=== PATIENT | male | born 1950 | race Caucasian/White ===

== ENCOUNTER 2016-10-29 08:34 | Day surgery (SDC) | payer MEDICARE, BC ==
--- NOTE | 2016-10-29 09:25 | PCM.PN ---
- General Info Date of Service: 10/29/16 - Review of Systems Systems Review Comment:: 66 y/o male with history of persistent RUQ pain and upper abdominal bloating. He has areas of thickening of the gallbladder wall on US and symptoms have now continued over several days. Plan cholecystectomy. Patient is stable to proceed with no significant changes to his health status since his recent exams. I have again discussed the proposed procedure with the patient. He agrees to proceed accepting risks. - Patient Data Weight - Most Recent: 174 lb Med Orders - Current: Current Medications Lactated Ringer's (Ringers, Lactated) 1,000 mls @ 125 mls/hr IV ASDIRECTED JAMES Cefazolin Sodium 1 gm/ Sodium (Chloride) 50 mls @ 200 mls/hr IV ONETIME ONE Stop: 10/29/16 10:14 - Problem List Review Problem List Initiated/Reviewed/Updated: Yes - My Orders Last 24 Hours: My Active Orders 10/28/16 13:37 Resuscitation Status Routine 10/29/16 08:30 Patient Status [ADT] Routine Patient to Empty Bladder [RC] ASDIRECTED Verify Patient Consent Obtain [RC] ASDIRECTED Lactated Ringers [Ringers, Lactated] 1,000 ml IV ASDIRECTED Peripheral IV Insertion Adult [OM.PC] Routine Sequential Compression Device [OM.PC] Routine 10/29/16 10:00 ceFAZolin [Ancef] 1 gm Sodium Chloride 0.9% [Normal Saline] 50 ml IV ONETIME 10/29/16 Breakfast Nothing Per Oral Diet [DIET] - Assessment Assessment:: Cholecystitis - Plan Plan:: Cholecystectomy
[2016-10-29] MEDS: Lactated Ringers 1,000 ML IV SCH ×2 (09:51→14:37)
[2016-10-29] MEDS ORDERED: Glycopyrrolate 0.2 MG/ML 5 ML MDV IV ONE (10:00)
[2016-10-29] MEDS ORDERED: Propofol 200 MG/20 ML SDV IV ONE (10:00)
[2016-10-29] MEDS ORDERED: ceFAZolin 1 GM in Sodium Chloride 0.9% 50 ML IV ONE (10:00)
[2016-10-29] MEDS ORDERED: Midazolam 1 MG/ML 2 ML SDV IV ONE (10:00)
[2016-10-29] MEDS ORDERED: HYDROmorphone 2 MG/ML SDV IV ONE (10:00)
[2016-10-29] MEDS ORDERED: Ketorolac 30 MG/ML SDV IVPUSH ONE (10:00)
[2016-10-29] MEDS ORDERED: Neostigmine Methylsulfate 1 MG/ML 5 ML Syringe IV ONE (10:00)
[2016-10-29] MEDS ORDERED: Rocuronium 50 MG/5 ML Vial IV ONE (10:00)
[2016-10-29] MEDS ORDERED: Lactated Ringers 1,000 ML IV ONE (10:00)
[2016-10-29] MEDS ORDERED: Succinylcholine 200 MG/10 ML MDV IV ONE (10:00)
[2016-10-29] MEDS ORDERED: Ondansetron 4 MG/2 ML SDV IVPUSH ONE (10:00)
[2016-10-29] MEDS ORDERED: fentaNYL 100 MCG/2 ML SDV IV ONE (10:00)
[2016-10-29] MEDS ORDERED: Bupivacaine 0.5%/EPINEPHrine 1:200,000 50 ML MDV INJECT ONE (10:24)
--- NOTE | 2016-10-29 11:52 | PCM.OPNOTE ---
- General Post-Op/Procedure Note Date of Surgery/Procedure: 10/29/16 Operative Procedure(s): Laparoscopic Cholecystectomy Findings: Acutely inflamed gallbladder with normal appearing liver and organs as viewed laparoscopically Pre Op Diagnosis: Symptomatic Cholecystitis Post-Op Diagnosis: Same Anesthesia Technique: General ET Tube Primary Surgeon: Kayden Rossi Pathology: Gallbladder Output, Urine Amount: 0 EBL in mLs: 25 Complications: None Condition: Good
[2016-10-29] MEDS ORDERED: Ondansetron 4 MG/2 ML SDV IVPUSH PRN (11:55)
[2016-10-29] MEDS ORDERED: HYDROmorphone 2 MG/ML SDV IV PRN (11:55)
[2016-10-29] MEDS ORDERED: HYDROmorphone 2 MG/ML SDV IVPUSH PRN (11:55)
[2016-10-29] MEDS ORDERED: Albuterol 0.083% 2.5 MG/3 ML Neb Soln NEB ONE (11:55)
[2016-10-29] MEDS ORDERED: fentaNYL 100 MCG/2 ML SDV IVPUSH PRN (11:55)
[2016-10-29] MEDS ORDERED: Naloxone 0.4 MG/ML SDV IVPUSH PRN (11:55)
[2016-10-29] MEDS ORDERED: Promethazine 25 MG/ML SDV IM PRN (11:55)
[2016-10-29] MEDS ORDERED: Lactated Ringers 1,000 ML IV SCH (12:00)
--- NOTE | 2016-10-29 12:57 | OR ---
DATE OF OPERATION: 10/29/2016 SURGEON: Kayden Rossi MD PREOPERATIVE DIAGNOSIS: Symptomatic cholecystitis. POSTOPERATIVE DIAGNOSIS: Symptomatic cholecystitis. OPERATION PERFORMED: Laparoscopic cholecystectomy. INDICATIONS FOR SURGERY: This 66-year-old male has developed symptoms of upper abdominal bloating as well as right upper quadrant abdominal pain. Symptoms have persisted over several days. Ultrasound has identified areas of the gallbladder wall, which appear thickened consistent with inflammation. Without rapid resolution of his symptoms, he comes for cholecystectomy. FINDINGS: The gallbladder does show evidence of chronic and acute inflammation. There were adhesions to the lower half of the gallbladder and there is edema and evidence of acute inflammation in the tissue adjacent to the gallbladder. The adjacent liver appears normal as does the bowel and other organs as viewed laparoscopically. PROCEDURE IN DETAIL: The patient was taken to the operating room. He was given general endotracheal anesthesia. The abdomen was sterilely prepped and draped. An infraumbilical stab wound incision was made. Through this, a Veress needle was inserted and pneumoperitoneum via this needle to a pressure of 15 mmHg was achieved with carbon dioxide. The Veress needle was then replaced with a 12 mm trocar into which the 5 mm variable angled laparoscopic camera was inserted. Under direct visualization, 5 mm trocars were placed in the subxiphoid midline and in 2 areas of the right abdomen. All trocar sites were infiltrated with Marcaine prior to incision. Intraabdominal inspection was carried out and attention was then turned to the gallbladder. It was secured with grasping forceps, placed through the lateral trocars and retracted superiorly and anteriorly. Fatty adhesions to the undersurface of the gallbladder were carefully taken down until the gallbladder wall was clearly exposed. Careful dissection was carried out to isolate the cystic duct and then the cystic artery, which appeared to have two major branches. As dissection continued, cystic artery branches were able to be identified and each in turn controlled by doubly clipping them and dividing the artery adjacent to the gallbladder. Once dissection had cleared the triangle of Calot and allowed clear and positive identity of the cystic duct, it was milked and it too was doubly clipped and divided near the gallbladder with great care being used to avoid any possible injury or compromise to the common bile duct. The gallbladder was then dissected free from the undersurface of the liver using the hook cautery device. Once the gallbladder was completely freed, it was extracted through the umbilical trocar site. This did require some persistent manipulation, but it was eventually able to be performed. The gallbladder bed was then reinspected and copiously irrigated. Full hemostasis was assured with the use of electrocautery and when there was no sign of any bleeding or any other complicating process, and after thorough irrigation had been carried out, the pneumoperitoneum was evacuated and the trocars were removed under direct visualization. The fascia of the umbilical trocar site was closed with a figure- of-eight 0 Vicryl suture. Wounds were irrigated with Betadine and saline solution. Skin incisions were approximated with interrupted 4-0 Vicryl in a subcuticular stitch, Steri-Strips and Benzoin. Antibiotic ointment and sterile dressings were placed. The patient was awakened extubated and taken from the operating room in satisfactory condition. ESTIMATED BLOOD LOSS: 25 mL. COMPLICATIONS: None. PROGNOSIS: Good. /[id number] RONAK/DIALLO
[2016-10-29 15:02] VITALS: BP 111/61
== END 2016-10-29 17:45 | disposition home or self-care (01) ==
LOC: FB.SDS 08:34
PROVIDERS: ATTEND Surgery
DX: K81.1 Chronic cholecystitis (principal); I25.10 Atherosclerotic heart disease of native coronary artery without angina pectoris; E78.5 Hyperlipidemia, unspecified; Z88.8 Allergy status to other drugs, medicaments and biological substances; Z79.899 Other long term (current) drug therapy; Z79.82 Long term (current) use of aspirin; Z98.890 Other specified postprocedural states; Z96.649 Presence of unspecified artificial hip joint; Z87.891 Personal history of nicotine dependence
CPT/HCPCS: 00790; 47562; J0330; J0690; J1170; J1885; J2250; J2405; J2550; J2704; J3010; J7050; J7120; 88304